=== PATIENT | male | born 1990 ===

== ENCOUNTER 2018-06-23 08:54 | Emergency (ER) | payer BC ==
[2018-06-23 09:00] VITALS: O2SAT 98
[2018-06-23] MEDS ORDERED: Acetaminophen-Codeine 300/30 mg Tab PO STA ×2 (09:16→09:57)
[2018-06-23] MEDS ORDERED: Acetaminophen-Codeine 300/30 mg Tab PO ONE ×2 (09:27→10:04)
[2018-06-23 09:35] VITALS: BP 119/76; PULSE 87; RESP 20; TEMP 98.2
--- NOTE | 2018-06-23 09:55 | C.PDOC ---
History Of Present Illness 27 y/o male presents to ED with c/o left infrascapular pain and tenderness after jogging yesterday and taking part in cross fit. Patient has taken Tylenol with no improvement and denies sensory motor deficits, weakness or any other complaints at this time. Time Seen by Provider: 06/23/18 09:06 Chief Complaint (Nursing): Back Pain History Per: Patient History/Exam Limitations: no limitations Onset/Duration Of Symptoms: Days Current Symptoms Are (Timing): Still Present Quality Of Discomfort: "Pain" Past Medical History Reviewed: Historical Data, Nursing Documentation, Vital Signs Vital Signs: Last Vital Signs Temp 98.2 F 06/23/18 09:34 Pulse 87 06/23/18 09:34 Resp 20 06/23/18 09:34 BP 119/76 06/23/18 09:34 Pulse Ox 98 06/23/18 09:54 - Medical History PMH: No Chronic Diseases Surgical History: No Surg Hx Family History: States: No Known Family Hx - Social History Hx Alcohol Use: Yes Hx Substance Use: No - Immunization History Hx Tetanus Toxoid Vaccination: No Hx Influenza Vaccination: No Hx Pneumococcal Vaccination: No Review Of Systems Except As Marked, All Systems Reviewed And Found Negative. Musculoskeletal: Positive for: Back Pain Physical Exam - Physical Exam Appears: Non-toxic, No Acute Distress Skin: Warm, Dry, No Rash Head: Atraumatic, Normacephalic Eye(s): bilateral: Normal Inspection Oral Mucosa: Moist Neck: Normal ROM, No Midline Cervical Tenderness, Supple Cardiovascular: Rhythm Regular Respiratory: Normal Breath Sounds, No Rales, No Rhonchi, No Wheezing Gastrointestinal/Abdominal: Soft, No Tenderness, No Guarding, No Rebound Back: No CVA Tenderness, Muscle Spasm (left infrascapular region), No Paraspinal Tenderness, Other (tenderness to left infrascapular region. No cellulitic process) Neurological/Psych: Oriented x3, Normal Speech, Normal Motor, Normal Sensation ED Course And Treatment O2 Sat by Pulse Oximetry: 98 (RA) Pulse Ox Interpretation: Normal Medical Decision Making Medical Decision Making: Assessment: Parathoracic pain Disposition - Disposition Disposition: HOME/ ROUTINE Disposition Time: 09:52 Condition: STABLE Additional Instructions: follow up with your doctor or medical clinic within 2 days call to make an appointment take medications as prescribed return to ER if symptoms worsens or progress no heavy lifting apply ice to affected area Prescriptions: Acetaminophen/Codeine [Tylenol/Codeine 300 MG/30 MG] 1 tab PO Q6H PRN #12 tab PRN Reason: Pain, Severe (8-10) Cyclobenzaprine [Cyclobenzaprine HCl] 10 mg PO TID PRN #12 tab PRN Reason: Muscle Spasm Lidocaine 5% [Lidoderm] 1 ea TD DAILY PRN #10 patch PRN Reason: Pain, Moderate (4-7) Naproxen [Naprosyn] 500 mg PO BID PRN #16 tab PRN Reason: Pain, Moderate (4-7) Instructions: Upper Back Pain (DC) Forms: General Discharge Instructions, [facility] ([place]), Work Excuse - Clinical Impression Clinical Impression: Thoracic back sprain - Scribe Statement The provider has reviewed the documentation as recorded by the Daliibashley Ruffin All medical record entries made by the Daliibashley were at my direction and personally dictated by me. I have reviewed the chart and agree that the record accurately reflects my personal performance of the history, physical exam, medical decision making, and the department course for this patient. I have also personally directed, reviewed, and agree with the discharge instructions and disposition.
== END 2018-06-23 10:47 | disposition home or self-care (01) ==
LOC: C.ER 08:54
DX: S23.3XXA Sprain of ligaments of thoracic spine, initial encounter (principal); X50.0XXA Overexertion from strenuous movement or load, initial encounter; Y93.02 Activity, running; Y92.9 Unspecified place or not applicable